=== PATIENT | male | born 1985 | race American Indian/Alaskan Native ===

== ENCOUNTER 2018-09-28 09:01 | Emergency (ER) | payer OTHER ==
[2018-09-28] MEDS ORDERED: IBUPROFEN PO ONE (09:39)
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
--- NOTE | 2018-09-28 11:16 | XRay Report ---
LUMBOSACRAL SPINE, 3 VIEWS: History: Back pain Findings: There is straightening of the normal lordosis. The vertebral bodies, disk spaces and posterior elements are intact. No compression deformity or malalignment. The SI joints are symmetric and unremarkable. Impression: 1. No evidence for acute injury to the lumbar spine.
--- NOTE | 2018-09-28 11:16 | XRay Report ---
RIGHT RIBS, 3 VIEWS: History: pain. Routine views of the rib cage demonstrate normal mineralization with no significant contour abnormalities, fractures or destructive lesions. PA view of the chest demonstrates no underlying cardiopulmonary abnormalities, fluid or pneumothorax. IMPRESSION: Unremarkable right rib series.
[2018-09-28 11:29] VITALS: BP 120/72
== END 2018-09-28 11:29 | disposition home or self-care (01) ==
LOC: ED 09:01
DX: S20.211A Contusion of right front wall of thorax, initial encounter (principal); S39.012A Strain of muscle, fascia and tendon of lower back, initial encounter; F17.200 Nicotine dependence, unspecified, uncomplicated; V49.49XA Driver injured in collision with other motor vehicles in traffic accident, initial encounter; Y93.89 Activity, other specified; Y92.488 Other paved roadways as the place of occurrence of the external cause; Y99.8 Other external cause status
CPT/HCPCS: 72100